=== PATIENT | male | born 1970 | race Caucasian/White ===

== ENCOUNTER → 2020-10-29 | Outpatient (CLI) | payer BC ==
[~2020-10-29] MED LIST: ASPIR 8181 MG PO; CEFUROXIME500 MG PO; LISINOPRIL20 MG PO; METFORMIN HCL1000 MG PO; PIOGLITAZONE HC45 MG PO; TAMIFLU 75 MG C75 MG PO; VICTOZA 3-0.6 MG/0.1 SQ
== END ==
LOC: HEART 5 07:58
DX: R07.9 Chest pain, unspecified (principal); R06.02 Shortness of breath; I08.1 Rheumatic disorders of both mitral and tricuspid valves
CPT/HCPCS: 78452; 93306; A9502; J2785

== ENCOUNTER → 2021-12-10 | Outpatient (CLI) | payer BC | LOC: RT 08:33 | DX: Z01.810 Encounter for preprocedural cardiovascular examination (principal) | CPT/HCPCS: 93005 ==

== ENCOUNTER → 2021-12-16 | Outpatient (CLI) | payer BC ==
[~2021-12-16] MED LIST changes: +ATORVASTATIN CA20 MG PO; +ECOTRIN81 MG PO; +ELIQUIS5 MG PO; +ISOSORBIDE DINI30 MG PO; +MULTI-VITAMIN1 EACH PO; +VICTOZA 3-0.6 MG/0.1 INJ; +VITAMIN C1000 MG PO; +VITAMIN D210 MCG PO; +VITAMIN E90 M1 PO
== END ==
LOC: CATH 08:00
DX: I25.41 Coronary artery aneurysm (principal); I20.8 Other forms of angina pectoris; I10 Essential (primary) hypertension; E78.5 Hyperlipidemia, unspecified; E11.9 Type 2 diabetes mellitus without complications; Z87.891 Personal history of nicotine dependence; Z79.82 Long term (current) use of aspirin; Z79.84 Long term (current) use of oral hypoglycemic drugs; Z79.899 Other long term (current) drug therapy
CPT/HCPCS: 82962; 85347; 92978; 99152; 99153; C1753; C1769; C1887; C1894; J1200; J1644; J2250; J2370; J3010; J7040; Q9967

== ENCOUNTER → 2022-02-16 | Outpatient (CLI) | payer BC | LOC: HEART 5 02-10 15:00 | DX: R07.9 Chest pain, unspecified (principal); R00.2 Palpitations; R06.02 Shortness of breath ==